=== PATIENT | female | born 1955 | race Caucasian/White ===

== ENCOUNTER → 2024-07-09 | Outpatient (CLI) | payer MEDICARE | END | disposition home or self-care (01) | LOC: SHCH 13:24 | PROVIDERS: ATTEND Internal Medicine Cardiovascular Disease | DX: I65.23 Occlusion and stenosis of bilateral carotid arteries (principal); I73.9 Peripheral vascular disease, unspecified; I21.4 Non-ST elevation (NSTEMI) myocardial infarction; I10 Essential (primary) hypertension; R01.1 Cardiac murmur, unspecified | CPT/HCPCS: 93880; 93925 ==

== ENCOUNTER → 2024-10-27 | Outpatient (CLI) | payer MEDICARE ==
--- NOTE | 2024-10-27 11:03 | HMCIMG ---
MR SPINAL CANAL, CERV WO CON REASON: M54.81 Occipital neuralgia COMPARISON: None TECHNIQUE: Routine cervical imaging protocol was performed. FINDINGS: Sagittal images show moderate to marked disc space narrowing at C5-6. There is mild narrowing at C6-7. There is some straightening of the normal cervical curvature in the mid cervical spine. Remaining interspaces are preserved. There are no focal osseous lesions. Axial images show widely patent spinal canal and neural foramina at the C2-3 and at C3-4. C4-5 also demonstrates widely patent canal and neural foramina. There is mild annular bulging at C5-6. There is borderline narrowing of the spinal canal at between 8 and 9 mm. There is moderate bilateral foraminal narrowing as well, more pronounced on the left than the right. There is also a diffuse annular bulge at C6-7. AP diameter is also between 8 and 9 mm. Neural foramina are preserved. C7-T1 shows normal findings. The spinal cord and craniocervical junction appear unremarkable. Surrounding soft tissues appear unremarkable. IMPRESSION: 1. Moderate disc to marked spondylosis of C5-6. 2. There is some foraminal narrowing at C5-6 more pronounced on the left than the right 3. Annular bulges at both C5-6 and C6-7, AP diameter in the midline is between 8 and 9 mm at each of these levels.
== END | disposition home or self-care (01) ==
LOC: RAH 08:14
PROVIDERS: ATTEND Neurological Surgery
DX: M47.812 Spondylosis without myelopathy or radiculopathy, cervical region (principal); M54.81 Occipital neuralgia; M48.02 Spinal stenosis, cervical region; M50.322 Other cervical disc degeneration at C5-C6 level
CPT/HCPCS: 72141

== ENCOUNTER → 2024-11-03 | Outpatient (CLI) | payer MEDICARE ==
[2024-11-03 12:29] LABS: BILIRUBIN,TOTAL 0.6 mg/dL (0.2-1.0); MAGNESIUM 2.1 mg/dL (1.80-2.40); POTASSIUM 3.9 mmol/L (3.5-5.1); TOTAL PROTEIN, SERUM 7.7 g/dL (6.0-8.3)
== END | disposition home or self-care (01) ==
LOC: LAB 10:05
PROVIDERS: ATTEND Internal Medicine Cardiovascular Disease
DX: I10 Essential (primary) hypertension (principal); E78.5 Hyperlipidemia, unspecified
CPT/HCPCS: 36415; 80053; 83735; 83880